=== PATIENT | male | born 1955 | race Caucasian/White ===

== ENCOUNTER 2017-04-24 17:07 | Emergency (ER) | payer OTHER ==
[~2017-04-24] VITALS: Ht 154.9 cm; Wt 62.0 kg
[~2017-04-24 17:07] MED LIST: BENA20TA65 PO; CARV3.1260 PO; HYDR-3720 PO; NIFE10CA19 PO; SIMV5TAB31 PO; TAMS-14 PO
[2017-04-24 17:11] VITALS: Ht 154.9 cm; Wt 62.0 kg
[2017-04-24] MEDS ORDERED: morphine 4 MG/ML VIAL IV STA (17:37)
[2017-04-24] MEDS ORDERED: SOD CHLORIDE 0.9% 1,000 ML IV STA (17:37)
[2017-04-24] MEDS ORDERED: ONDANSETRON 4 MG INJ IV STA (17:37)
[2017-04-24 18:00] LABS: ADD SCAN DIFF NO
[2017-04-24 18:02] LABS: BASOPHIL # 0.1 10^3/ul (0.0-0.1); BASOPHILS % 0.5 % (0.0-2.0); EOSINOPHILS # 0.1 10^3/ul (0.0-0.5); EOSINOPHILS % 0.9 % (0.0-7.0); HEMOGLOBIN 15.8 g/dl (14.0-18.0); LYMPHOCYTES # 1.8 10^3/ul (0.8-2.9); LYMPHOCYTES % 14.7 % (15.0-51.0); MEAN CORPUSCULAR HEMOGLOBIN 31.7 pg (29.0-33.0); MEAN CORPUSCULAR HGB CONC 34.3 g/dl (32.0-37.0); MEAN CORPUSCULAR VOLUME 92.2 fl (82.0-101.0); MEAN PLATELET VOLUME 10.4 fl (7.4-10.4); MONOCYTE # 0.6 10^3/ul (0.3-0.9); NEUTROPHIL # 9.7 10^3/ul (1.6-7.5); NEUTROPHILS % 78.6 % (39.0-77.0); PLATELET COUNT 223 10^3/UL (140-415); RED BLOOD COUNT 4.99 10^6/ul (4.70-6.10); RED CELL DISTRIBUTION WIDTH 12.1 % (11.5-14.5); WHITE BLOOD COUNT 12.3 10^3/ul (4.8-10.8)
[2017-04-24 18:10] LABS: ADD UMIC YES; UR AMORPHOUS CRYSTAL FEW /HPF (NONE SEEN); UR ASCORBIC ACID 20 mg/dL (NEGATIVE); UR BILIRUBIN (Dip) NEGATIVE (NEGATIVE); UR BLOOD (Dip) 3+ mg/dL (NEGATIVE); UR CLARITY CLOUDY (CLEAR); UR COLOR YELLOW (YELLOW); UR GLUCOSE (Dip) NEGATIVE (NEGATIVE); UR KETONES (Dip) NEGATIVE (NEGATIVE); UR LEUKOCYTE ESTERASE (Dip) NEGATIVE Leu/ul (NEGATIVE); UR MUCUS FEW /HPF (NONE SEEN); UR NITRITE (Dip) NEGATIVE (NEGATIVE); UR RBC > 182 /HPF (0-5); UR SPECIFIC GRAVITY (Dip) 1.015 (1.003-1.030); UR TOTAL PROTEIN (Dip) 1+ mg/dl (NEGATIVE); UR UROBILINOGEN (Dip) NEGATIVE (NEGATIVE); UR WBC CLUMPS MANY /HPF (NONE SEEN)
[2017-04-24 18:20] LABS: ALBUMIN 4.9 g/dl (3.3-4.9); ALBUMIN/GLOBULIN RATIO 1.96; BILIRUBIN,INDIRECT 0.5 mg/dl (0-1.1); BILIRUBIN,TOTAL 0.5 mg/dl (0.2-1.3); CALCIUM 10.2 mg/dl (8.4-10.2); CREATININE 1.18 mg/dl (0.61-1.24); POTASSIUM 4.1 mmol/L (3.5-5.1); TOTAL PROTEIN 7.4 g/dl (6.1-8.1)
--- NOTE | 2017-04-24 19:34 | RADRPT ---
PROCEDURE: CT Abdomen and Pelvis without contrast CLINICAL INDICATION: Abdominal pain TECHNIQUE: Transaxial images were obtained through the abdomen and pelvis on a multi-slice scanner without the intravenous contrast administration. Some oral contrast had previously been given. Sagi ttal and coronal re-formations were subsequently reconstructed. One or more of the following dose reduction techniques were used: - Automated exposure control. - Adjustment of the mA and/or kV according to patient size. - Use of iterative reconstruction technique. Radiation dose: CTDIvol = 7.57 mGy; DLP = 422.48 mGy-cm. COMPARISON: 12/17/2015 FINDINGS: Lung bases: The visualized lung bases appear unremarkable. Liver: Normal in size and in attenuation. There is no focal lesion. Gallbladder: The wall is not thickened. No radiopaque stones are identified. Bile ducts: The intra and extrahepatic bile ducts are normal in caliber. Pancreas: Appears normal with no mass or inflammation evident. Spleen: Normal in size with no focal lesion. Adrenals: Normal with no mass identified. Kidneys, ureters and bladder: The right kidney appears normal except for slight perinephric strandin g. There is also perinephric stranding on the left but also mild pelvocaliectasis. A 2.7 x 2.7 x 2 .9 mm ureterolith is seen within the proximal left ureter approximately 3 cm inferior to the uretero pelvic junction. 9 mm cyst is again seen within the inferior pole left kidney. The bladder appears u nremarkable. Reproductive organs: The prostate is mildly prominent. Stomach and bowel: The stomach appears unremarkable. There are a few scattered diverticuli within t hese sigmoid colon and a small amount of contrast is seen within the colon. There is no evidence of bowel obstruction or inflammation. Appendix: A normal vermiform appendix is evident. Peritoneum: No free intraperitoneal fluid or air is identified. Aorta: There is atherosclerotic vascular calcification but no abdominal aortic aneurysm is evident. IVC: Unremarkable. Lymph nodes: No pathologically enlarged nodes are identified. Osseous structures: Mild degenerative endplate changes are seen to the spine. IMPRESSION: 1. Since the previous study of 12/17/2015, the distal left ureterolith is no longer evident but a 2 .7 x 2.7 x 2-0.9 mm ureterolith is seen in the proximal left ureter proximally 3 cm inferior to the left ureteropelvic junction not associated with mild left hydronephrosis and proximal hydroureter. There is perinephric stranding and an 8 mm cyst is seen within the inferior pole of the left kidney. The the right kidney appears unremarkable except for persistent perinephric stranding. The bladder appears normal. 2. There are a few diverticuli within the sigmoid colon and some contrast is no seen within the col on but there is no evidence of bowel obstruction or inflammation. A normal vermiform appendix is ag ain evident. The stomach is no longer distended. 3. There is again no free intraperitoneal fluid or air. 4. The aortic and appears atherosclerotic. Physician Caitlin Date Time Electronically viewed and signed by Physician Caitlin on 04/24/2017 19:34 /
[2017-04-24] MEDS ORDERED: TAMS-14 PO (19:43)
[2017-04-24] MEDS ORDERED: HYDR-906 PO (19:43)
[2017-04-24 20:06] VITALS: BP 136/64; PULSE 64; RESP 16; TEMP 98.6
--- NOTE | 2017-04-24 23:13 | ERD ---
ER Documentation Chief Complaint Date/Time DATE: 04/24/17 TIME: 23:09 Chief Complaint Pt with L flank pain since AM, had kidney stone in past. HPI 61-year-old male with a history of nephrolithiasis presents to the emergency department complaining of left-sided flank pain that radiates to his abdomen since this morning. Patient states the pain is 8 out of 10, sharp. He denies any hematuria, fever. Patient states that he believes that he has another kidney stone. He denies taking any medications for this ROS All systems reviewed and are negative except as per history of present illness. Medications Home Meds Active Scripts Tamsulosin Hcl* (Flomax*) 0.4 Mg Cap.er.24h, 0.4 MG PO QPM, #30 CAP Prov:TOBIAS TUTTLE PA-C 04/24/17 Hydrocodone/Acetaminophen ([place] 5-325 Tablet) 1 Each Tablet, 1 TAB PO Q6H Y for PAIN, #30 TAB Prov:TOBIAS TUTTLE PA-C 04/24/17 Hydrocodone Bit-Acetaminophen* ([place]*) 7.5-325 Tablet, 2 TAB PO Q4H Y for PAIN , #30 TAB Prov:LEKKOS,APOSTOLOS A. DO 12/18/15 Tamsulosin Hcl* (Flomax*) 0.4 Mg Cap.er.24h, 0.4 MG PO QPM, #10 CAP Prov:LEKKOS,APOSTOLOS A. DO 12/18/15 Reported Medications Simvastatin* (Zocor*) Unknown Strength Tablet, PO, #30 TAB 12/18/15 Benazepril Hcl* (Lotensin*) Unknown Strength Tablet, PO, #60 TAB 12/18/15 Carvedilol* (Carvedilol*) Unknown Strength Tablet, PO, #60 TAB 12/18/15 Nifedipine* (Procardia*) Unknown Strength Capsule, PO, CAP 12/18/15 Allergies Allergies: Coded Allergies: No Known Drug Allergies (Verified Allergy, Unknown, 12/18/15) PMhx/Soc History of Surgery: Yes (cleft palate) Anesthesia Reaction: No Hx Neurological Disorder: No Hx Respiratory Disorders: No Hx Cardiac Disorders: Yes (high cholesterol HTN) Hx Psychiatric Problems: No Hx Miscellaneous Medical Probl: Yes (KIDNEY STONES ) Hx Alcohol Use: No Hx Substance Use: No Hx Tobacco Use: Yes Smoking Status: Current every day smoker Physical Exam Vitals Vital Signs Date Time Temp Pulse Resp B/P Pulse Ox O2 Delivery O2 Flow Rate FiO2 04/24/17 20:06 98.6 64 16 136/64 97 Room Air 04/24/17 17:11 98.8 77 18 146/74 98 Physical Exam GENERAL: well-developed/well-nourished, in no apparent distress, non-toxic appearing HENT: NC/AT, moist mucous membranes EYES: Conjunctiva normal NECK: Supple, no lymphadenopathy PULM: CTA bilaterally, no rales, rhonchi, or wheezing heard CV: Normal S1S2, RRR, good capillary refill GI: Soft, non-distended, tender to palpation in the left flank Normal bowel sounds, no masses or organomegaly felt on exam No gross peritonitis, no bruits Negative Rovsing, negative Bowden, negative McBurney's point, Negative CVAT BACK: No masses EXT: No clubbing, cyanosis, or edema NEURO: Alert and Orientated SKIN: Intact, normal turgor PSYCH: Normal mood and mentation Result Diagram: 04/24/17 1745 04/24/17 174 Results 24 hrs Laboratory Tests Test 04/24/17 17:45 White Blood Count 12.310^3/ul Red Blood Count 4.9910^6/ul Hemoglobin 15.8g/dl Hematocrit 46.0% Mean Corpuscular Volume 92.2fl Mean Corpuscular Hemoglobin 31.7pg Mean Corpuscular Hemoglobin Concent 34.3g/dl Red Cell Distribution Width 12.1% Platelet Count 64387^3/UL Mean Platelet Volume 10.4fl Neutrophils % 78.6% Lymphocytes % 14.7% Monocytes % 5.0% Eosinophils % 0.9% Basophils % 0.5% Nucleated Red Blood Cells % 0.0/100WBC Neutrophils # 9.710^3/ul Lymphocytes # 1.810^3/ul Monocytes # 0.610^3/ul Eosinophils # 0.110^3/ul Basophils # 0.110^3/ul Nucleated Red Blood Cells # 0.010^3/ul Urine Color YELLOW Urine Clarity CLOUDY Urine pH 7.0 Urine Specific [place] 1.015 Urine Ketones NEGATIVEmg/dL Urine Nitrite NEGATIVEmg/dL Urine Bilirubin NEGATIVEmg/dL Urine Urobilinogen NEGATIVEmg/dL Urine Leukocyte Esterase NEGATIVELeu/ul Urine Microscopic RBC > 182/HPF Urine Microscopic WBC 0/HPF Urine Amorphous Crystals FEW/HPF Urine Mucus FEW/HPF Urine Hemoglobin 3+mg/dL Urine Glucose NEGATIVEmg/dL Urine Total Protein 1+mg/dl Sodium Level 141mmol/L Potassium Level 4.1mmol/L Chloride Level 100mmol/L Carbon Dioxide Level 29mmol/L Anion Gap 16 Blood Urea Nitrogen 14mg/dl Creatinine 1.18mg/dl Glucose Level 131mg/dl Calcium Level 10.2mg/dl Total Bilirubin 0.5mg/dl Direct Bilirubin 0.00mg/dl Indirect Bilirubin 0.5mg/dl Aspartate Amino Transf (AST/SGOT) 25IU/L Alanine Aminotransferase (ALT/SGPT) 40IU/L Alkaline Phosphatase 48IU/L Total Protein 7.4g/dl Albumin 4.9g/dl Globulin 2.50g/dl Albumin/Globulin Ratio 1.96 Lipase 87U/L Current Medications Medications (Trade) Dose Ordered Sig/Malia Route PRN Reason Start Time Stop Time Status Last Admin Dose Admin Sodium Chloride (NS) 1,000 ml @ 1,000 mls/hr Q1H STAT IV 04/24/17 17:37 04/24/17 18:36 DC 04/24/17 17:51 Morphine Sulfate (morphine) 4 mg ONCE STAT IV 04/24/17 17:37 04/24/17 17:38 DC 04/24/17 17:51 Ondansetron HCl (Zofran Inj) 4 mg ONCE STAT IV 04/24/17 17:37 04/24/17 17:38 DC 04/24/17 17:50 Procedures/MDM This is a 61-year-old male presenting to the emergency department with left- sided flank pain likely due to nephrolithiasis. I will low suspicion for septic stone versus obstruction. Patient appears well, nontoxic and he stable to be discharged home to follow-up with a urologist. Lab work was done in the ED, patient had mild leukocytosis likely due to stress reaction. There was no evidence of renal failure. Urinalysis did show evidence of hemoglobin to the stone but no evidence of infection. CT of the abdomen and pelvis without contrast was done and radiologist stated 1. Since the previous study of 12/17/2015, the distal left ureterolith is no longer evident but a 2.7 x 2.7 x 2-0.9 mm ureterolith is seen in the proximal left ureter proximally 3 cm inferior to the left ureteropelvic junction not associated with mild left hydronephrosis and proximal hydroureter. There is perinephric stranding and an 8 mm cyst is seen within the inferior pole of the left kidney. The the right kidney appears unremarkable except for persistent perinephric stranding. The bladder appears normal. 2. There are a few diverticuli within the sigmoid colon and some contrast is no seen within the colon but there is no evidence of bowel obstruction or inflammation. A normal vermiform appendix is again evident. The stomach is no longer distended. 3. There is again no free intraperitoneal fluid or air. 4. The aortic and appears atherosclerotic. Patient was given fluids in the ED along with morphine and Zofran, I have reassessed him he needed doing a lot better. Patient stable to go home and to return to the ER for worsening sinus nose. Understands and agrees with this plan Departure Diagnosis: Primary Impression: Nephrolithiasis Condition: Stable Patient Instructions: Kidney Stones: Your Evaluation, Kidney Stone W/ Colic, Kidney Stone (Urine) Additional Instructions: FOLLOW UP WITH YOUR PRIMARY CARE PHYSICIAN TOMORROW.Return to this facility if you are not improving as expected. Take all medicines as directed. You have been given a medicine which may cause drowsiness.DO NOT DRIVE OR OPERATE DANGEROUS MACHINERY while taking this medicine! Return to this facility if you are not improving as expected. SPECIALIST: YOU HAVE A MEDICAL CONDITION WHICH REQUIRES YOU TO SEE A SPECIALIST WITHIN THE NEXT 1-2 DAYS. PLEASE FOLLOW UP WITH YOUR PRIMARY PHYSICIAN FOR REFFERAL.IF YOU DO NOT HAVE A PRIMARY CARE PHYSICIAN AND/OR YOU CAN NOT AFFORD TO SEE A PHYSICIAN THE FOLLOWING RESOURCES HAVE BEEN SUPPLIED TO YOU. IT IS YOUR RESPONSIBILITY TO BE SEEN BY THE SPECIALIST TOBIAS TUTTLE PA-C Apr 24, 2017 23:13
== END 2017-04-24 20:07 | disposition home or self-care (01) ==
LOC: FTE 17:07
DX: N20.0 Calculus of kidney (principal); I10 Essential (primary) hypertension; F17.210 Nicotine dependence, cigarettes, uncomplicated
CPT/HCPCS: 36415; 74176; 80053; 81001; 83690; 85025; 96374; 96375; 99285; J2270; J2405; J7030